=== PATIENT | male | born 2000 | race Caucasian/White ===

== ENCOUNTER 2025-05-20 09:04 | Outpatient (CLI) | payer MEDICAID ==
--- NOTE | 2025-05-20 11:43 | RADIOLOGY REPORT ---
CLINICAL INDICATION: LT ANKLE EFFUSION COMPARISON: None TECHNIQUE: Multiplanar, multisequence MRI of the left foot was performed without intravenous contrast. Contrast: None. INTERPRETATION: Bones: No evidence of acute fracture. There is no marrow replacing lesion. Joints: There is a focus of susceptibility artifact in the medial midfoot at the level of the 1st tarsometatarsal joint. There is bone marrow edema in the 1st proximal metatarsal and the medial cuneiform and the joint space is narrowed. The other joint spaces are maintained in the visualized forefoot. Soft tissues: The Lisfranc ligament is intact. The medial and lateral collateral ligaments are intact at the metatarsophalangeal joints. The flexor and extensor tendons are intact. There is no plantar plate tear. There is no soft tissue mass or fluid collection. The intrinsic muscles of the foot are unremarkable. IMPRESSION: 1. 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
== END 2025-05-20 23:59 | disposition home or self-care (01) ==
LOC: MRI02 09:04
PROVIDERS: ATTEND Podiatrist Foot & Ankle Surgery
DX: S82.52XA Displaced fracture of medial malleolus of left tibia, initial encounter for closed fracture (principal); S93.422A Sprain of deltoid ligament of left ankle, initial encounter; M19.072 Primary osteoarthritis, left ankle and foot; M25.472 Effusion, left ankle; M21.40 Flat foot [pes planus] (acquired), unspecified foot; M25.376 Other instability, unspecified foot; X58.XXXA Exposure to other specified factors, initial encounter; Y93.89 Activity, other specified; Y92.89 Other specified places as the place of occurrence of the external cause; Y99.8 Other external cause status
CPT/HCPCS: 73718